=== PATIENT | female | born 1975 | race Caucasian/White ===

== ENCOUNTER → 2018-01-13 | Day surgery (SDC) | payer BC, OTHER ==
[~2018-01-13] MED LIST: GLUCAGON FOR INJ 1 MG VIAL ONE; HYOSCYAMINE SULFATE 0.5 MG/ML AMP ONE; IMITREX PO; MAXALT10 MG; MIDAZOLAM HCL 5MG/ML 2ML VIAL ONE; PHENERGAN25 MG/1 ML PO; PHENERMINE; PHENTERMINE H37.5 MG PO; PROPOFOL IV EMULSION 10 MG/ML 50 ML VIAL ONE; ZOLOFT50 MG PO
[2018-01-13 13:30] VITALS: BP 125/97
--- NOTE | 2018-01-13 13:40 | Operative Report ---
DATE OF PROCEDURE: January 13, 2018 REFERRING PHYSICIAN: Dr. Burak Phelps. PROCEDURE PERFORMED: Colonoscopy with polypectomy and biopsies. INDICATIONS FOR COLONOSCOPY: Right-sided abdominal pain, diarrhea, colitis per CT scan. MEDICATION: Patient was done under MAC. Please see anesthesiologist's note. PROCEDURE: With the patient in the left lateral decubitus position, the flexible fiberoptic Olympus colonoscope was inserted into the rectum with ease and advanced all the way to the cecum. The mucosa overlying the cecum grossly appeared to be within normal limits. The ileocecal valve was intubated, and the scope was advanced into the terminal ileum. Biopsies were obtained. The scope was then withdrawn back into the colon. It was then withdrawn slowly. Mucosa overlying the ascending and the transverse, descending and sigmoid revealed some diffuse intense erythema and moderate edema, and random biopsies were obtained. Some diverticular disease was noted in the sigmoid colon. A large ?leiomyoma was noted in the distal sigmoid, and that was biopsied. The scope was then retroflexed into the distal rectum and small internal hemorrhoids were noted, none of which was actively bleeding. The scope was then straightened out. The scope was subsequently withdrawn after securing an adequate stool specimen that was sent for the appropriate stool studies. Patient tolerated procedure well. IMPRESSION: 1. Colitis, mild to moderate, diffuse. Biopsies obtained. 2. Diverticulosis. 3. Sigmoid colon polyp snared. 4. 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 Biopsies obtained. 5. Internal hemorrhoids, none actively bleeding. PLAN: Follow up histology. Follow up stool studies. Initiate Bentyl 10 mg p.o. t.i.d. and VSL#3 one p.o. daily. Job#: [id number] EV cc:BURAK PHELPS MD
[2018-01-13 14:09] LABS: WBC,FECAL (FECAL LACTOFERRIN) NEGATIVE (NEGATIVE)
[2018-01-13 14:20] LABS: ALANINE AMINOTRANSFERASE 47 IU/L (0-55); ALBUMIN 4.2 g/dL (3.5-5.0); ALBUMIN/GLOBULIN RATIO 1.3 (0.8-2.0); ALKALINE PHOSPHATASE 63 IU/L (40-150); BLOOD UREA NITROGEN 12 mg/dL (7-26); BUN/CREATININE RATIO 12 (6-25); CALCIUM 9.7 mg/dL (8.4-10.2); CARBON DIOXIDE 25 mmol/L (22-29); CHLORIDE 105 mmol/L (98-107); CREATININE, SERUM 0.98 mg/dL (0.57-1.11); EST GLOMERULAR FILTRATION RATE > 60 ML/MIN (60-); GLUCOSE 103 mg/dL (74-118); SODIUM 139 mmol/L (136-145)
[2018-01-14 16:04] LABS: C DIFFICILE TOXIN A&B AMP PROB NEGATIVE (NEGATIVE)
== END | disposition home or self-care (01) ==
LOC: OR 10:00
PROVIDERS: ATTEND Internal Medicine Gastroenterology
DX: K52.9 Noninfective gastroenteritis and colitis, unspecified (principal); K63.5 Polyp of colon; K57.30 Diverticulosis of large intestine without perforation or abscess without bleeding; K64.8 Other hemorrhoids; K76.0 Fatty (change of) liver, not elsewhere classified; R94.5 Abnormal results of liver function studies; R03.0 Elevated blood-pressure reading, without diagnosis of hypertension; F41.9 Anxiety disorder, unspecified; Z88.3 Allergy status to other anti-infective agents; Z68.28 Body mass index [BMI] 28.0-28.9, adult; Z80.0 Family history of malignant neoplasm of digestive organs
CPT/HCPCS: 36415; 45380; 45385; 80053; 83630; 83993; 85651; 86140; 86256; 86671; 87045; 87177; 87328; 87493; J1610; J1980; J2250; 45378

== ENCOUNTER → 2018-11-26 | Outpatient (CLI) | payer BC ==
[~2018-11-26] MED LIST changes: -GLUCAGON FOR INJ 1 MG VIAL ONE; -HYOSCYAMINE SULFATE 0.5 MG/ML AMP ONE; -MIDAZOLAM HCL 5MG/ML 2ML VIAL ONE; -PROPOFOL IV EMULSION 10 MG/ML 50 ML VIAL ONE
--- NOTE | 2018-11-28 15:07 | Diagnostic Imaging Report ---
EXAM: US ABDOMEN COMPLETE DATE: 11/26/2018 9:50 AM INDICATION: Hepatic steatosis COMPARISON: None TECHNIQUE: Transverse and longitudinal hurtado scale and color doppler sonographic images of the upper abdomen were obtained. FINDINGS: There is no evidence of fluid or masses seen in the area of clinical concern in the right lower quadrant. LIVER 12.5 cm in the right midclavicular line. Increased echogenicity of the liver with normal contour, no masses. SPLEEN 10.9 cm in maximum diameter. Normal echogenicity, no masses. GALLBLADDER Status post cholecystectomy. BILE DUCTS No intra nor extra-hepatic biliary dilation. Common bile duct measures 0.6cm PANCREAS: Visualized portions are normal. RIGHT KIDNEY: 11.0 cm Echogenicity: Normal Collecting System: No hydronephrosis Stones: None Cyst/Mass: None LEFT KIDNEY: 10.6 cm Echogenicity: Normal Collecting System: No hydronephrosis Stones: None Cyst/Mass: None VESSELS: Aorta: Visualized portions are within normal size limits Inferior Vena Cava: Visualized portions are normal Main Portal Vein: 0.8 cm, normal size with hepatopetal flow. FREE FLUID: None IMPRESSION: Hepatic steatosis with geographic areas of focal fatty sparing. Signed by: Ketty Combs MD on 11/26/2018 10:58 AM
== END ==
LOC: US 09:41
PROVIDERS: ATTEND Internal Medicine Gastroenterology
DX: K76.0 Fatty (change of) liver, not elsewhere classified (principal)
CPT/HCPCS: 76700

== ENCOUNTER → 2021-04-05 | Day surgery (SDC) | payer BC ==
[~2021-04-05] MED LIST changes: +ADDERALL 10 MG10 MG PO; +FENTANYL CITRATE/PF 100MCG/2 ML INJ ONE; +HYOSCYAMINE SULFATE 0.5 MG/ML INJ ONE; +MAXALT10 MG PO; +MIDAZOLAM HCL 2 MG/2 ML VIAL ONE; +PROPOFOL IV EMULSION 10 MG/ML 20 ML VIAL ONE
[2021-04-05 09:16] VITALS: BP 112/84
== END | disposition home or self-care (01) ==
LOC: OR 06:52
PROVIDERS: ATTEND Internal Medicine Gastroenterology
DX: Z12.11 Encounter for screening for malignant neoplasm of colon (principal); K75.81 Nonalcoholic steatohepatitis (NASH); F90.9 Attention-deficit hyperactivity disorder, unspecified type; K57.30 Diverticulosis of large intestine without perforation or abscess without bleeding; K63.5 Polyp of colon; F41.9 Anxiety disorder, unspecified; F32.A Depression, unspecified; K76.0 Fatty (change of) liver, not elsewhere classified; Z86.010 Personal history of colon polyps; Z90.49 Acquired absence of other specified parts of digestive tract; Z88.8 Allergy status to other drugs, medicaments and biological substances; Z01.812 Encounter for preprocedural laboratory examination; Z20.822 Contact with and (suspected) exposure to COVID-19
CPT/HCPCS: 45380; J1980; J2250; J2704; J3010; U0002; 45378; 45384

== ENCOUNTER 2021-04-09 20:50 | Inpatient (IN) | payer BC ==
[~2021-04-09] VITALS: Ht 162.6 cm; Wt 71.2 kg
[~2021-04-09 20:50] MED LIST changes: -FENTANYL CITRATE/PF 100MCG/2 ML INJ ONE; -HYOSCYAMINE SULFATE 0.5 MG/ML INJ ONE; -MIDAZOLAM HCL 2 MG/2 ML VIAL ONE; -PROPOFOL IV EMULSION 10 MG/ML 20 ML VIAL ONE
[2021-04-09] MEDS ORDERED: SODIUM CHLORIDE 0.9% 1000ML 1,000 ML IV STA (21:04)
[2021-04-09] MEDS: SODIUM CHLORIDE 0.9% 1000ML 1,000 ML IV SCH (21:45)
[2021-04-09] MEDS: ONDANSETRON HCL INJ 2MG/ML 2ML 2 MG/ML VIAL IV PRN ×2 (21:51→22:01)
[2021-04-09 21:53] LABS: BASOPHILS % 0.4 % (0.0-1.0); EOSINOPHILS # (AUTO) 0.1 (0.0-0.4); EOSINOPHILS % 1.2 % (0.0-6.0); HEMATOCRIT 44.4 % (34.2-44.1); HEMOGLOBIN 14.9 g/dL (12.0-16.0); LYMPHOCYTES # (AUTO) 1.7 (1.0-3.2); LYMPHOCYTES % 24.7 % (18.0-39.1); MEAN CORPUSCULAR HEMOGLOBIN 32.1 pg (28-32); MEAN CORPUSCULAR HGB CONC 33.6 g/dL (31-35); MEAN CORPUSCULAR VOLUME 95.7 fL (81-99); MONOCYTES # (AUTO) 0.5 (0.2-0.8); NEUTROPHILS # (AUTO) 4.5 (2.1-6.9); NEUTROPHILS % 66.4 % (38.7-80.0); PLATELET COUNT 219 x10e3/uL (140-360); RED BLOOD COUNT 4.64 x10e6/uL (3.6-5.1); RED CELL DISTRIBUTION WIDTH 11.8 % (11.7-14.4)
[2021-04-09] MEDS ORDERED: ONDANSETRON HCL INJ 2MG/ML 2ML 2 MG/ML VIAL ONE (22:00)
[2021-04-09] MEDS: Morphine 4mg Syringe 4 MG/ML INJ IV PRN ×2 (22:01→22:02)
[2021-04-09 22:11] LABS: ALBUMIN 3.9 g/dL (3.5-5.0); ALBUMIN/GLOBULIN RATIO 1.4 (0.8-2.0); ANION GAP 13.4 mmol/L (8-16); CALCIUM 8.4 mg/dL (8.4-10.2); CREATININE, SERUM 0.78 mg/dL (0.57-1.11); POTASSIUM 4.4 mmol/L (3.5-5.1)
[2021-04-10] VITALS (8 sets, daily range): BP systolic 113–129; BP diastolic 54–93
[2021-04-10] MEDS ORDERED: Morphine 4mg Syringe 4 MG/ML INJ IV STA (01:28)
[2021-04-10] MEDS ORDERED: ONDANSETRON HCL INJ 2MG/ML 2ML 2 MG/ML VIAL IV STA (01:29)
[2021-04-10] MEDS: Morphine 4mg Syringe 4 MG/ML INJ IV PRN ×5 (05:37→23:14)
[2021-04-10] MEDS: ONDANSETRON HCL INJ 2MG/ML 2ML 2 MG/ML VIAL IV PRN ×5 (05:37→23:14)
[2021-04-10] MEDS: SODIUM CHLORIDE 0.9% 1000ML 1,000 ML IV SCH ×3 (05:45→21:41)
[2021-04-10 07:20] LABS: BASOPHILS % 0.5 % (0.0-1.0); EOSINOPHILS # (AUTO) 0.1 (0.0-0.4); EOSINOPHILS % 1.3 % (0.0-6.0); HEMATOCRIT 41.9 % (34.2-44.1); HEMOGLOBIN 13.8 g/dL (12.0-16.0); LYMPHOCYTES # (AUTO) 2.1 (1.0-3.2); MEAN CORPUSCULAR HEMOGLOBIN 32.1 pg (28-32); MEAN CORPUSCULAR HGB CONC 32.9 g/dL (31-35); MEAN CORPUSCULAR VOLUME 97.4 fL (81-99); MONOCYTES # (AUTO) 0.6 (0.2-0.8); MONOCYTES % 7.3 % (4.4-11.3); NEUTROPHILS # (AUTO) 4.7 (2.1-6.9); NEUTROPHILS % 62.8 % (38.7-80.0); PLATELET COUNT 210 x10e3/uL (140-360); RED CELL DISTRIBUTION WIDTH 11.9 % (11.7-14.4)
[2021-04-10 07:44] LABS: ALANINE AMINOTRANSFERASE 36 IU/L (0-55); ALBUMIN 3.3 g/dL (3.5-5.0); ALBUMIN/GLOBULIN RATIO 1.4 (0.8-2.0); ALKALINE PHOSPHATASE 40 IU/L (40-150); ANION GAP 8.8 mmol/L (8-16); BLOOD UREA NITROGEN < 5 mg/dL (7-26); CALCIUM 7.6 mg/dL (8.4-10.2); CARBON DIOXIDE 25 mmol/L (22-29); CHLORIDE 109 mmol/L (98-107); EST GLOMERULAR FILTRATION RATE 90 ML/MIN (60-); GLUCOSE 92 mg/dL (74-118); POTASSIUM 3.8 mmol/L (3.5-5.1); SODIUM 139 mmol/L (136-145)
[2021-04-10 07:50] LABS: BUN/CREATININE RATIO 7 (6-25)
[2021-04-10 10:47] LABS: INR 1.06; PROTHROMBIN TIME 14.7 seconds (11.9-14.5)
[2021-04-10] MEDS ORDERED: PHYTONADIONE 10 MG/ML AMP IV ONE (15:00)
[2021-04-10] MEDS ORDERED: PHYTONADIONE 10MG/ML 20 MG in SODIUM CHLORIDE 0.9% 50ML 50 ML IV ONE (15:30)
[2021-04-11] VITALS (9 sets, daily range): BP systolic 114–150; BP diastolic 70–98
[2021-04-11] MEDS: Morphine 4mg Syringe 4 MG/ML INJ IV PRN ×5 (04:35→21:40)
[2021-04-11] MEDS: ONDANSETRON HCL INJ 2MG/ML 2ML 2 MG/ML VIAL IV PRN ×5 (04:35→21:40)
[2021-04-11 06:48] LABS: ALANINE AMINOTRANSFERASE 83 IU/L (0-55); ALBUMIN 3.4 g/dL (3.5-5.0); ALBUMIN/GLOBULIN RATIO 1.5 (0.8-2.0); ALKALINE PHOSPHATASE 54 IU/L (40-150); ANION GAP 9.8 mmol/L (8-16); BLOOD UREA NITROGEN < 5 mg/dL (7-26); CALCIUM 7.7 mg/dL (8.4-10.2); CARBON DIOXIDE 24 mmol/L (22-29); CHLORIDE 109 mmol/L (98-107); CREATININE, SERUM 0.78 mg/dL (0.57-1.11); EST GLOMERULAR FILTRATION RATE 79 ML/MIN (60-); GLUCOSE 88 mg/dL (74-118); POTASSIUM 3.8 mmol/L (3.5-5.1); SODIUM 139 mmol/L (136-145)
[2021-04-11 06:53] LABS: BUN/CREATININE RATIO 6 (6-25)
[2021-04-11] MEDS: SODIUM CHLORIDE 0.9% 1000ML 1,000 ML IV SCH ×3 (08:30→20:08)
[2021-04-11 09:06] LABS: HEMATOCRIT 39.2 % (34.2-44.1); HEMOGLOBIN 12.8 g/dL (12.0-16.0)
[2021-04-11] MEDS ORDERED: ACETAMINOPHEN 325 MG TAB PO PRN (12:15)
[2021-04-11] MEDS ORDERED: SODIUM CHLORIDE 0.9% 100 ML ONE (14:24)
[2021-04-11] MEDS ORDERED: IOPAMIDOL 370 MG/ML 200 ML INFUS..BTL INJ ONE (14:24)
[2021-04-11 20:30] LABS: HEMATOCRIT 41.4 % (34.2-44.1); HEMOGLOBIN 13.7 g/dL (12.0-16.0)
[2021-04-11] MEDS ORDERED: PHYTONADIONE 10 MG/ML AMP IV ONE (23:00)
[2021-04-11] MEDS ORDERED: SODIUM CHLORIDE 0.9% 50ML 50 ML ONE (23:08)
[2021-04-12] VITALS: BP 129/88
[2021-04-12] MEDS: Morphine 4mg Syringe 4 MG/ML INJ IV PRN ×2 (02:01→06:06)
[2021-04-12] MEDS: ONDANSETRON HCL INJ 2MG/ML 2ML 2 MG/ML VIAL IV PRN ×2 (02:01→06:06)
[2021-04-12 04:00] VITALS: BP 116/74
[2021-04-12 05:06] LABS: BASOPHILS % 0.4 % (0.0-1.0); EOSINOPHILS # (AUTO) 0.1 (0.0-0.4); HEMOGLOBIN 13.5 g/dL (12.0-16.0); LYMPHOCYTES # (AUTO) 2.5 (1.0-3.2); LYMPHOCYTES % 35.1 % (18.0-39.1); MEAN CORPUSCULAR HEMOGLOBIN 32.4 pg (28-32); MEAN CORPUSCULAR HGB CONC 34.6 g/dL (31-35); MEAN CORPUSCULAR VOLUME 93.5 fL (81-99); MONOCYTES # (AUTO) 0.6 (0.2-0.8); MONOCYTES % 8.9 % (4.4-11.3); NEUTROPHILS # (AUTO) 3.7 (2.1-6.9); NEUTROPHILS % 53.3 % (38.7-80.0); PLATELET COUNT 205 x10e3/uL (140-360); RED BLOOD COUNT 4.17 x10e6/uL (3.6-5.1); RED CELL DISTRIBUTION WIDTH 11.7 % (11.7-14.4)
[2021-04-12 05:30] LABS: ALANINE AMINOTRANSFERASE 60 IU/L (0-55); ALBUMIN 3.5 g/dL (3.5-5.0); ALBUMIN/GLOBULIN RATIO 1.5 (0.8-2.0); ALKALINE PHOSPHATASE 53 IU/L (40-150); ANION GAP 10.8 mmol/L (8-16); CALCIUM 7.9 mg/dL (8.4-10.2); CARBON DIOXIDE 25 mmol/L (22-29); CHLORIDE 107 mmol/L (98-107); CREATININE, SERUM 0.84 mg/dL (0.57-1.11); EST GLOMERULAR FILTRATION RATE 73 ML/MIN (60-); GLUCOSE 93 mg/dL (74-118); POTASSIUM 3.8 mmol/L (3.5-5.1); SODIUM 139 mmol/L (136-145)
[2021-04-12] MEDS: SODIUM CHLORIDE 0.9% 1000ML 1,000 ML IV SCH ×2 (05:31→13:45)
[2021-04-12 05:37] LABS: BUN/CREATININE RATIO 6 (6-25)
[2021-04-12 05:45] LABS: BLOOD UREA NITROGEN < 5 mg/dL (7-26)
[2021-04-12 08:46] VITALS: BP 116/74
[2021-04-12 08:53] VITALS: BP 121/84
[2021-04-12 09:24] VITALS: BP 121/84
[2021-04-12 12:11] VITALS: BP 132/91
[2021-04-12] MEDS ORDERED: HYDROCODON-ACE1 EA11 PO (13:35)
== END 2021-04-12 14:38 | disposition home or self-care (01) | DRG 379 ==
LOC: ER 21:00 → ERHOLD 21:45 → MED/SURG 04-10 01:45 → OBSVTOIN 04-11 11:18
PROVIDERS: ADMIT Internal Medicine; ATTEND Internal Medicine
DX: K57.91 Diverticulosis of intestine, part unspecified, without perforation or abscess with bleeding (principal); F90.9 Attention-deficit hyperactivity disorder, unspecified type; Z90.49 Acquired absence of other specified parts of digestive tract; Z20.822 Contact with and (suspected) exposure to COVID-19; K56.41 Fecal impaction
CPT/HCPCS: 36415; 74174; 80053; 83880; 85014; 85018; 85025; 85610; 85730; 86850; 86900; 94799; 99284; G0378; J2270; J2405; J3430; J7030; J7050; Q9967; U0002

== ENCOUNTER → 2024-08-13 | Outpatient (REF) | payer BC ==
[~2024-08-13] MED LIST changes: +HYDROCODON-ACE1 EA11 PO
== END ==
LOC: US 08:04
PROVIDERS: ATTEND Nurse Practitioner
DX: K42.0 Umbilical hernia with obstruction, without gangrene (principal)
CPT/HCPCS: 76700; 76856

== ENCOUNTER → 2024-11-11 | Day surgery (SDC) | payer BC ==
[2024-11-09 13:26] LABS: BASOPHILS % 0.5 % (0.0-1.0); EOSINOPHILS % 1.9 % (0.0-6.0); LYMPHOCYTES % 38.5 % (18.0-39.1); MONOCYTES % 8.1 % (4.4-11.3); NEUTROPHILS % 51.0 % (38.7-80.0); RED CELL DISTRIBUTION WIDTH 12.2 % (11.7-14.4)
[2024-11-09 14:00] LABS: EST GLOMERULAR FILTRATION RATE 82.0 ML/MIN (>=60)
[~2024-11-11] MED LIST changes: +ACETAMINOPHEN 1000 MG/100 ML 100 ML IV ONE; +DEXAMETHASONE SOD PHOS INJ 4 MG/ML SDV ONE; +EPHEDRINE SULFATE INJ 50 MG/ML VIAL ONE; +FENTANYL CITRATE/PF 100MCG/2 ML INJ ONE; +HYDROCODONE/APAP 7.5MG-325MG 1 EA TAB ONE; +HYDROMORPHONE 2MG/ML ONE; +LIDOCAINE HCL 2% LOCAL INJ 5 ML SDV VIAL INJ ONE; +LOSARTAN POTASS25 MG PO; +MIDAZOLAM HCL 2 MG/2 ML VIAL ONE; +ONDANSETRON HCL INJ 2MG/ML 2ML 2 MG/ML VIAL ONE; +PROPOFOL IV EMULSION 10 MG/ML 20 ML VIAL ONE; +ROCURONIUM BROMIDE 1 ML IV ONE; +SUGAMMADEX SODIUM 200 MG/2 ML VIAL IV ONE; +TRIAMTERENE-HCTZ1 EA PO
[2024-11-11] MEDS: LACTATED RINGER'S 1,000 ML ONE (06:47)
[2024-11-11] MEDS: SCOPOLAMINE 1 MG PATCH ONE (07:28)
[2024-11-11] MEDS: HYDROCODONE/APAP 7.5MG-325MG 1 EA TAB PO ONE (11:32)
[2024-11-11 12:00] VITALS: BP 126/90; PULSE 62; RESP 18; O2SAT 99
== END | disposition home or self-care (01) ==
LOC: OR 06:31
PROVIDERS: ATTEND Surgery
DX: K43.6 Other and unspecified ventral hernia with obstruction, without gangrene (principal); K42.0 Umbilical hernia with obstruction, without gangrene; I11.9 Hypertensive heart disease without heart failure; I34.1 Nonrheumatic mitral (valve) prolapse; Z01.810 Encounter for preprocedural cardiovascular examination; Z01.812 Encounter for preprocedural laboratory examination; Z79.899 Other long term (current) drug therapy
CPT/HCPCS: 36415; 49594; 80048; 85025; 93005; C1781; J0131; J1100; J1171; J2003; J2250; J2405; J2704; J3010; J7121